=== PATIENT | female | born 1955 | race African-American/Black ===

== ENCOUNTER 2018-06-10 19:31 | Emergency (ER) | payer MEDICAID ==
[~2018-06-10] VITALS: Ht 167.6 cm; Wt 80.0 kg
[2018-06-10] MEDS ORDERED: ACETAMINOPHEN WITH CODEINE 300/30MG TABLET PO STA (20:35)
[2018-06-10 22:25] VITALS: BP 131/82
== END 2018-06-10 22:26 | disposition home or self-care (01) ==
LOC: ER 19:31
DX: S09.8XXA Other specified injuries of head, initial encounter (principal); M54.2 Cervicalgia; M25.511 Pain in right shoulder; I10 Essential (primary) hypertension; W07.XXXA Fall from chair, initial encounter; Y93.89 Activity, other specified; Y92.89 Other specified places as the place of occurrence of the external cause; Y99.8 Other external cause status
CPT/HCPCS: 73030; 99284